=== PATIENT | male | born 1960 | race Caucasian/White ===

== ENCOUNTER 2017-06-27 18:12 | Inpatient (IN) | payer MEDICAID, OTHER ==
[~2017-06-27] VITALS: Ht 180.3 cm; Wt 88.2 kg
[2017-06-27] MEDS ORDERED: ONDANSETRON 2MG/ML, 2ML ONE (18:46)
[2017-06-27] MEDS ORDERED: ONDANSETRON 2MG/ML, 2ML IVPush ONE (19:00)
[2017-06-27] MEDS ORDERED: SODIUM CHLORIDE FLUSH 10ML SYR IVF ONE (19:00)
[2017-06-27] MEDS ORDERED: SODIUM CHLORIDE 0.9% 1,000ML IVBOLUS ONE (19:00)
[2017-06-27 19:02] LABS: ASPARTATE AMINO TRANSFERASE 119 U/L (15-37); BLOOD UREA NITROGEN 14 mg/dL (7-18)
[2017-06-27 19:35] LABS: HEMATOCRIT 47.4 % (39.2-51.8); HEMOGLOBIN 15.8 g/dL (13.7-18.0)
[2017-06-27] MEDS ORDERED: OMNIPAQUE 350 MG/ML, 100ML BOTTLE ONE (20:01)
[2017-06-27] MEDS ORDERED: HYDROmorphone 2 MG/ML, 1ML IVPush PRN (21:00)
[2017-06-27] MEDS ORDERED: ONDANSETRON 2MG/ML, 2ML IVPush PRN (21:00)
[2017-06-27] MEDS ORDERED: ACETAMINOPHEN 325 MG TABLET PO PRN (21:00)
[2017-06-27] MEDS: ENOXAPARIN 40 MG/0.4 ML SQ SCH (21:00)
[2017-06-27 22:09] VITALS: BP 138/82
[2017-06-27] MEDS: NS + 20MEQ KCL 1,000 ML IV SCH (22:41)
[2017-06-28 01:55] VITALS: BP 110/69
[2017-06-28] MEDS: NS + 20MEQ KCL 1,000 ML IV SCH (05:30)
[2017-06-28 06:14] LABS: ASPARTATE AMINO TRANSFERASE 97 U/L (15-37); BLOOD UREA NITROGEN 14 mg/dL (7-18)
[2017-06-28 06:58] VITALS: BP 124/72
[2017-06-28] MEDS: ENOXAPARIN 40 MG/0.4 ML SQ SCH (09:00)
== END 2017-06-28 11:05 | disposition left against medical advice (07) | DRG 432 ==
LOC: ED 19:36 → SUATTDRO 20:32 → EDIP 20:34 → 4EST 22:02
PROVIDERS: ADMIT Internal Medicine; ATTEND Internal Medicine
DX: K70.30 Alcoholic cirrhosis of liver without ascites (principal); K85.20 Alcohol induced acute pancreatitis without necrosis or infection; D69.6 Thrombocytopenia, unspecified; E44.1 Mild protein-calorie malnutrition; R16.1 Splenomegaly, not elsewhere classified; E87.6 Hypokalemia; F10.10 Alcohol abuse, uncomplicated; Y90.1 Blood alcohol level of 20-39 mg/100 ml; F17.210 Nicotine dependence, cigarettes, uncomplicated; I86.8 Varicose veins of other specified sites; K76.1 Chronic passive congestion of liver; Z53.21 Procedure and treatment not carried out due to patient leaving prior to being seen by health care provider; K80.20 Calculus of gallbladder without cholecystitis without obstruction; Z68.27 Body mass index [BMI] 27.0-27.9, adult
CPT/HCPCS: 36415; 74177; 80053; 80307; 81003; 83690; 83735; 85025; J2405; J3480; Q9967; J7030